=== PATIENT | male | born 1965 | race African-American/Black ===

== ENCOUNTER 2018-12-31 17:47 | Emergency (ER) | payer SELFPAY ==
[~2018-12-31] VITALS: Ht 167.6 cm; Wt 104.5 kg
[2018-12-31 17:51] VITALS: Ht 167.6 cm; Wt 104.5 kg
[2018-12-31] MEDS ORDERED: TORADOL10 MG PO (19:57)
[2018-12-31 20:37] VITALS: BP 149/82
== END 2018-12-31 20:08 | disposition home or self-care (01) ==
LOC: D.ER 17:47
DX: M54.5 Low back pain (principal); I10 Essential (primary) hypertension

== ENCOUNTER 2019-03-22 08:54 | Emergency (ER) | payer SELFPAY ==
[~2019-03-22] VITALS: Ht 167.6 cm; Wt 108.9 kg
[~2019-03-22 08:54] MED LIST: TORADOL10 MG PO
[2019-03-22 08:58] VITALS: Ht 167.6 cm; Wt 108.9 kg
[2019-03-22 09:30] LABS: BASOPHILS 0.3 % (0-2); EOSINOPHILS 3.3 % (0-7); HEMATOCRIT 47.2 % (42.0-54.0); HEMOGLOBIN 15.4 g/dL (13.5-17.5); IMMATURE GRANULOCYTES 0.3 % (0-5); LYMPHOCYTES 38.5 % (15-50); MCHC 32.6 g/dL (31.0-37.0); MCV 97.9 fL (80.0-100.0); MEAN PLATELET VOLUME 10.9 fL (7.4-10.4); MONOCYTES 14.5 % (2-11); NEUTROPHILS 43.1 % (40-80); PLATELET COUNT 234 10x3/uL (130-400); RBC 4.82 10x6/uL (4.20-6.10); RDW 12.2 % (11.5-14.5); WBC 6.9 10x3/uL (4.8-10.8)
[2019-03-22 09:32] LABS: APPEARANCE CLEAR (CLEAR); BACTERIA MODERATE /hpf (NEGATIVE); BILIRUBIN NEGATIVE (NEGATIVE); COLOR YELLOW (YELLOW); EPITHELIAL CELLS 0-5 /hpf (0-5); GLUCOSE NEGATIVE (NEGATIVE); KETONE NEGATIVE (NEGATIVE); NITRITE NEGATIVE (NEGATIVE); PROTEIN NEGATIVE (NEGATIVE); RED CELLS - URINE 0-5 /hpf (0-5); UROBILINOGEN NORMAL (NORMAL)
[2019-03-22 09:47] LABS: ANION GAP 11.2 mmol/L (8-16); CALCIUM 8.6 mg/dL (8.5-10.1); CARBON DIOXIDE 26.9 mmol/L (21.0-32.0); CREATININE - SERUM 1.3 mg/dL (0.6-1.3); POTASSIUM - SERUM 4.1 mmol/L (3.5-5.1)
[2019-03-22 09:53] LABS: ALBUMIN 3.6 g/dL (3.4-5.0); BILIRUBIN - TOTAL 0.41 mg/dL (0.2-1.3); PROTEIN - SERUM 7.6 g/dL (6.4-8.2)
[2019-03-22] MEDS ORDERED: SULFAMETHOXAZOL1 TA2 PO (10:05)
[2019-03-22] MEDS ORDERED: NORVASC5 MG PO (10:05)
[2019-03-22 10:15] VITALS: BP 151/95
== END 2019-03-22 10:16 | disposition home or self-care (01) ==
LOC: D.ER 08:54
PROVIDERS: Emergency Medicine
DX: I10 Essential (primary) hypertension (principal); N39.0 Urinary tract infection, site not specified; F17.200 Nicotine dependence, unspecified, uncomplicated

== ENCOUNTER 2019-05-03 18:34 | Emergency (ER) | payer MEDICAID ==
[~2019-05-03] VITALS: Ht 167.6 cm; Wt 118.2 kg
[~2019-05-03 18:34] MED LIST changes: +NORVASC5 MG PO; +SULFAMETHOXAZOL1 TA2 PO
[2019-05-03 18:56] VITALS: Ht 167.6 cm; Wt 118.2 kg
[2019-05-03] MEDS ORDERED: CYCLOBENZAPRINE10 MG PO (20:29)
[2019-05-03] MEDS ORDERED: NAPROSYN500 MG PO (20:29)
[2019-05-03 20:58] VITALS: BP 143/87
== END 2019-05-03 21:02 | disposition home or self-care (01) ==
LOC: D.ER 18:34
DX: S20.212A Contusion of left front wall of thorax, initial encounter (principal); V49.9XXA Car occupant (driver) (passenger) injured in unspecified traffic accident, initial encounter; S16.1XXA Strain of muscle, fascia and tendon at neck level, initial encounter; S33.5XXA Sprain of ligaments of lumbar spine, initial encounter

== ENCOUNTER 2019-08-11 16:22 | Emergency (ER) | payer MEDICAID ==
[~2019-08-11] VITALS: Ht 167.6 cm; Wt 109.5 kg
[~2019-08-11 16:22] MED LIST changes: +CYCLOBENZAPRINE10 MG PO; +Lantus Insulin SC; +NAPROSYN500 MG PO; +OMEPRAZOLE40 MG PO; +RIOMET500 MG/5 M PO
[2019-08-11 16:30] VITALS: Ht 167.6 cm; Wt 109.5 kg
[2019-08-11 16:55] LABS: HEMATOCRIT 41.4 % (42.0-54.0); HEMOGLOBIN 13.2 g/dL (13.5-17.5); LYMPHOCYTES 37.3 % (15-50); MCH 31.1 pg (26.0-34.0); MCHC 31.9 g/dL (31.0-37.0); MCV 97.6 fL (80.0-100.0); MEAN PLATELET VOLUME 9.7 fL (7.4-10.4); NEUTROPHILS 53.1 % (40-80); RBC 4.24 10x6/uL (4.20-6.10); RDW 13.2 % (11.5-14.5); WBC 7.6 10x3/uL (4.8-10.8)
[2019-08-11 16:57] LABS: PLATELET COUNT 369 10x3/uL (130-400)
[2019-08-11 17:06] LABS: APTT 31.9 SECONDS (22.8-39.4); INR 0.92 (0.85-1.17); PROTIME 12.3 SECONDS (11.6-15.0)
[2019-08-11 17:13] LABS: CALC OSMOLALITY 279 mosm/kg (275-300); CALCIUM 9.4 mg/dL (8.5-10.1); CARBON DIOXIDE 26.6 mmol/L (21.0-32.0); CHLORIDE - SERUM 101 mmol/L (98-107); CREATININE - SERUM 1.3 mg/dL (0.6-1.3); SODIUM 138 mmol/L (136-145); UREA NITROGEN 16 mg/dL (7-18); eGFR NON AFRICAN AMERICAN 61 mL/min (90-120)
[2019-08-11 17:16] LABS: GLUCOSE 161 mg/dL (74-106)
[2019-08-11 17:29] LABS: ALBUMIN 3.7 g/dL (3.4-5.0); ALKALINE PHOSPHATASE 124 U/L (30-120); ALT (SGPT) 55 U/L (10-68); BILIRUBIN - TOTAL 0.18 mg/dL (0.2-1.3); CKMB 1.9 U/L (0.0-3.6); CREATINE KINASE 364 UL (21-232); MAGNESIUM - SERUM 2.1 mg/dL (1.8-2.4); PROTEIN - SERUM 7.6 g/dL (6.4-8.2)
[2019-08-11 17:35] LABS: TROPONIN-I < 0.017 ng/mL (0.000-0.060)
[2019-08-11] MEDS ORDERED: OMEPRAZOLE40 MG PO (18:12)
[2019-08-11] MEDS ORDERED: CATAPRES0.1 MG PO (18:12)
[2019-08-11 18:24] VITALS: BP 134/80
== END 2019-08-11 18:25 | disposition home or self-care (01) ==
LOC: D.ER 16:22
PROVIDERS: Family Medicine
DX: R07.9 Chest pain, unspecified (principal); K21.9 Gastro-esophageal reflux disease without esophagitis; I10 Essential (primary) hypertension; E11.9 Type 2 diabetes mellitus without complications; Z72.0 Tobacco use; Z79.84 Long term (current) use of oral hypoglycemic drugs

== ENCOUNTER 2019-12-26 20:49 | Emergency (ER) | payer MEDICAID ==
[~2019-12-26] VITALS: Ht 167.6 cm; Wt 119.5 kg
[~2019-12-26 20:49] MED LIST changes: +CATAPRES0.1 MG PO
[2019-12-26 20:56] VITALS: Ht 167.6 cm; Wt 119.5 kg
[2019-12-26] MEDS ORDERED: MOBIC7.5 MG PO (21:00)
[2019-12-26] MEDS ORDERED: CYCLOBENZAPRINE10 MG PO (21:01)
[2019-12-26 21:18] LABS: BASOPHILS 0.3 % (0-2); EOSINOPHILS 3.3 % (0-7); HEMATOCRIT 46.6 % (42.0-54.0); HEMOGLOBIN 15.2 g/dL (13.5-17.5); IMMATURE GRANULOCYTES 0.6 % (0-5); LYMPHOCYTES 38.7 % (15-50); MCH 31.1 pg (26.0-34.0); MCHC 32.6 g/dL (31.0-37.0); MCV 95.5 fL (80.0-100.0); MONOCYTES 11.7 % (2-11); NEUTROPHILS 45.4 % (40-80); RBC 4.88 10x6/uL (4.20-6.10); RDW 12.3 % (11.5-14.5); WBC 8.7 10x3/uL (4.8-10.8)
[2019-12-26 21:21] LABS: PLATELET COUNT 230 10x3/uL (130-400)
[2019-12-26 21:26] LABS: CALCIUM 8.6 mg/dL (8.5-10.1); CARBON DIOXIDE 27.9 mmol/L (21.0-32.0); CREATININE - SERUM 1.3 mg/dL (0.6-1.3); POTASSIUM - SERUM 3.9 mmol/L (3.5-5.1)
[2019-12-26 21:32] LABS: ALBUMIN 3.7 g/dL (3.4-5.0); BILIRUBIN - TOTAL 0.28 mg/dL (0.2-1.3); MAGNESIUM - SERUM 2.1 mg/dL (1.8-2.4); PROTEIN - SERUM 7.5 g/dL (6.4-8.2)
[2019-12-26 21:47] LABS: BILIRUBIN NEGATIVE (NEGATIVE); GLUCOSE 250 mg/dL (NEGATIVE); KETONE NEGATIVE (NEGATIVE); NITRITE NEGATIVE (NEGATIVE); UROBILINOGEN NORMAL (NORMAL)
[2019-12-26] MEDS ORDERED: CATAPRES0.2 MG PO (22:55)
[2019-12-26] MEDS ORDERED: NORVASC5 MG PO (22:55)
[2019-12-26 23:19] VITALS: BP 171/90
== END 2019-12-26 23:19 | disposition home or self-care (01) ==
LOC: D.ER 20:49
PROVIDERS: Family Medicine
DX: E11.65 Type 2 diabetes mellitus with hyperglycemia (principal); I10 Essential (primary) hypertension; Z79.84 Long term (current) use of oral hypoglycemic drugs